=== PATIENT | female | born 1975 ===

== ENCOUNTER 2016-07-30 04:49 | Emergency (ER) | payer MEDICAID, OTHER ==
[2016-07-30 04:49] VITALS: BMI 29.2
[2016-07-30 05:18] VITALS: TEMP 98
[2016-07-30] MEDS ORDERED: Sodium Chloride 0.9% 1,000 ML IV ONE (05:27)
--- NOTE | 2016-07-30 05:27 | C.PDOC ---
History Of Present Illness Patient ate some take out fried chicken and developed abdominal pain, nausea and vomiting a few hours afterwards. Not tolerating po. No f/c. Time Seen by Provider: 07/30/16 05:27 Chief Complaint (Nursing): Abdominal Pain History Per: Patient History/Exam Limitations: no limitations Onset/Duration Of Symptoms: Hrs Current Symptoms Are (Timing): Still Present Context: Food Severity: Moderate Pain Scale Rating Of: 5 Location Of Pain/Discomfort: Diffuse Radiation Of Pain To:: None Quality Of Discomfort: Dull, Cramping, Stabbing Associated Symptoms: Nausea, Vomiting, Loss Of Appetite. denies: Fever, Chills Exacerbating Factors: None Alleviating Factors: None Last Bowel Movement: Yesterday Recent travel outside of the [place]: No Additional History Per: Patient Abnormal Vaginal Bleeding: No Past Medical History Reviewed: Historical Data, Nursing Documentation, Vital Signs Vital Signs: Last Vital Signs Temp 98 F 07/30/16 05:15 Pulse 90 07/30/16 05:45 Resp 16 07/30/16 05:45 BP 119/69 07/30/16 05:45 Pulse Ox 98 07/30/16 05:45 - Medical History PMH: Anemia - [facility] Procedures ESOPHAGOGASTRODUODENOSCOPY [EGD] W/CLOSED BIOPSY (06/02/13) Family History: States: No Known Family Hx - Social History Hx Tobacco Use: No Hx Alcohol Use: No Hx Substance Use: No - Immunization History Hx Tetanus Toxoid Vaccination: Yes Hx Influenza Vaccination: Yes Hx Pneumococcal Vaccination: No Review Of Systems Constitutional: Negative for: Fever, Chills ENT: Negative for: Throat Pain Cardiovascular: Negative for: Chest Pain, Palpitations Respiratory: Negative for: Shortness of Breath Gastrointestinal: Positive for: Nausea, Vomiting, Abdominal Pain Genitourinary: Negative for: Dysuria Musculoskeletal: Negative for: Back Pain Skin: Negative for: Rash, Lesions, Jaundice Neurological: Negative for: Weakness Psych: Negative for: Anxiety Physical Exam - Physical Exam Appears: Non-toxic, No Acute Distress Skin: Warm, Dry Oral Mucosa: Moist Neck: Supple Chest: Symmetrical Cardiovascular: Rhythm Regular Respiratory: No Rales, No Rhonchi, No Wheezing Gastrointestinal/Abdominal: Soft, Tenderness (diffuse), No Guarding, No Rebound Back: Normal Inspection Extremity: Normal ROM Extremity: Bilateral: Atraumatic, Normal Color And Temperature Neurological/Psych: Oriented x3, Normal Speech, Normal Cognition Gait: Steady ED Course And Treatment - Laboratory Results Result Diagrams: 07/30/16 05:48 07/30/16 05:48 O2 Sat by Pulse Oximetry: 97 Pulse Ox Interpretation: Normal Progress Note: blood work, ivf, zofran, pepcid, morphine Disposition Counseled Patient/Family Regarding: Studies Performed, Diagnosis - Disposition Disposition Time: 05:27 Condition: FAIR - Clinical Impression Clinical Impression: Abdominal pain, Nausea, Vomiting Physician Patient Turnover Patient Signed Over To: Mary Nevarez Handoff Comments: pending ct scan and re-eval
[2016-07-30] MEDS ORDERED: Sodium Chloride 0.9% 1,000 ML ONE (05:43)
[2016-07-30 05:57] LABS: BASO # 0.1 K/uL (0.0-0.2); BASO % 0.3 % (0.0-2.0); EOS # 0.6 K/uL (0.0-0.7); EOS % 3.1 % (0.0-4.0); HEMATOCRIT 41.4 % (34.0-47.0); LYMPH # 1.5 K/uL (1.0-4.3); LYMPH % 7.9 % (20.0-40.0); MEAN CELL VOLUME 88.5 fL (81.0-99.0); MEAN CORPUSCULAR HEMOGLOBIN 28.9 pg (27.0-31.0); MEAN CORPUSCULAR HGB CONC 32.7 g/dL (33.0-37.0); MEAN PLATELET VOLUME 8.1 fL (7.2-11.7); MONO # 1.2 K/uL (0.0-0.8); MONO % 6.4 % (0.0-10.0); PLATELET COUNT 385 K/uL (130-400); RED CELL DISTRIBUTION WIDTH 13.5 % (11.5-14.5); WHITE BLOOD COUNT 19.2 K/uL (4.8-10.8)
[2016-07-30 06:00] LABS: RBC URINE 15 /hpf (0-3); URINE BACTERIA OCC (<OCC); URINE BILIRUBIN NEGATIVE (NEGATIVE); URINE BLOOD NEGATIVE (NEGATIVE); URINE COLOR Yellow (YELLOW); URINE GLUCOSE (UA) NORMAL (Normal); URINE KETONE TRACE mg/dL (NEGATIVE); URINE LEUKOCYTE ESTERASE 3+ Leu/uL (Negative); URINE PROTEIN 1+ mg/dL (NEGATIVE); URINE UROBILINOGEN NORMAL mg/dL (0.2-1.0); WBC URINE 30 /hpf (0-5)
[2016-07-30 06:07] LABS: INR 0.9
[2016-07-30 06:12] LABS: CHLORIDE 101 mmol/L (98-107)
[2016-07-30 06:13] LABS: POTASSIUM 3.7 mmol/L (3.6-5.2); SODIUM 139 mmol/L (132-148)
[2016-07-30 06:15] LABS: BILIRUBIN,TOTAL 0.6 mg/dL (0.2-1.3); CARBON DIOXIDE 25 mmol/L (22-30); GFR AFRICAN-AMERICAN > 60
[2016-07-30 06:16] LABS: ALB/GLOB RATIO 1.2 (1.0-2.1); ALKALINE PHOSPHATASE 74 U/L (38-126); ALT/SGPT 25 U/L (9-52); AST/SGOT 24 U/L (14-36); BLOOD UREA NITROGEN 12 mg/dL (7-17); CALCIUM 8.8 mg/dl (8.6-10.4); GLUCOSE,RANDOM 123 mg/dL (65-105); TOTAL PROTEIN 8.4 g/dL (6.3-8.3)
[2016-07-30 07:13] VITALS: RESP 20
[2016-07-30] MEDS ORDERED: Iodixanol 320 MG/ML 100 ML BOTTLE IV ONE (07:19)
[2016-07-30 07:24] LABS: EOSINOPHIL 2 % (0-4); NEUTROPHIL 85 % (50-75); TOTAL CELLS COUNTED 100
--- NOTE | 2016-07-30 08:48 | CT ---
PROCEDURE: CT Abdomen and Pelvis with contrast HISTORY: Abdominal pain, nausea and vomiting COMPARISON: None. TECHNIQUE: Helical CT scan of the abdomen and pelvis was performed after administration of intravenous contrast. Oral contrast was not administered. Coronal and sagittal reformatted images were obtained. Contrast dose: 100 mL Visipaque Radiation dose: Total exam DLP = 406.75 mGy-cm. This CT exam was performed using one or more of the following dose reduction techniques: Automated exposure control, adjustment of the mA and/or kV according to patient size, and/or use of iterative reconstruction technique. FINDINGS: LOWER THORAX: The lung bases are clear. LIVER: The liver is normal in size and there is homogeneous enhancement. 5 mm low-attenuation lesion in the right hepatic lobe is too small to characterize by CT criteria. . No ductal dilatation. GALLBLADDER AND BILE DUCTS: Surgically absent. PANCREAS: The pancreas is normal in size and there homogeneous enhancement without focal mass. SPLEEN: The spleen is normal in size and there is homogeneous enhancement without focal mass. ADRENALS: Both adrenal glands are normal in size without discrete nodule. KIDNEYS AND URETERS: Both kidneys are normal in size and there is homogeneous enhancement without hydronephrosis or focal mass. VASCULATURE: Normal in appearance. No evidence of aortic aneurysm. BOWEL: The stomach is distended and there is mild distention of the 2nd portion of duodenum with inspissated material. Status post laparoscopic band surgery. There are fluid filled normal caliber small bowel loops. There are multiple air-fluid levels in the colon and rectum. No evidence of bowel dilatation or obstruction. APPENDIX: Not distinctly visualized. PERITONEUM: Unremarkable. No free fluid. No free air. LYMPH NODES: No enlarged lymph nodes. BLADDER: Partially decompressed. REPRODUCTIVE: The uterus is normal in size. Within normal limits BONES: No acute fracture. For the patient's age. OTHER FINDINGS: None. IMPRESSION: 1. Findings are most compatible with nonspecific enteritis and colitis. No evidence of bowel obstruction. 2. The appendix is not distinctly visualized. No evidence of inflammatory changes in the right lower quadrant.
[2016-07-30] MEDS ORDERED: Atropine-Diphenoxylate 0.025-2.5 mg Tab PO STA (09:12)
[2016-07-30] MEDS ORDERED: Atropine-Diphenoxylate 0.025-2.5 mg Tab ONE (09:29)
[2016-07-30 09:35] VITALS: BP 107/77; PULSE 79; O2SAT 99
== END 2016-07-30 09:50 | disposition home or self-care (01) ==
LOC: C.ER 04:49
DX: R10.84 Generalized abdominal pain (principal); R11.2 Nausea with vomiting, unspecified
CPT/HCPCS: 74177; 80053; 81001; 83690; 84703; 85025; 85610; 85730; 96361; 96365; 96375; 99285; J0696; J2270; J2405; J7040; Q9967

== ENCOUNTER 2017-11-10 20:48 | Emergency (ER) | payer MEDICAID, OTHER ==
[2017-11-10 20:48] VITALS: BMI 29.2
[2017-11-10 21:37] VITALS: BP 100/68; PULSE 75; TEMP 98.5; O2SAT 99
--- NOTE | 2017-11-10 22:36 | C.PDOC ---
History Of Present Illness 42yo female, comes to ER with complaints of left lower back pain radiating to her left lower leg started after exercising 2 weeks ago but now worse . She denies any known blunt trauma or injury to the area and denies any weakness or numbness to her lower extremity. Patient denies any heavy lifting, bowel or bladder dysfunction, saddle anesthesia, and offers no additional medical complaints. Time Seen by Provider: 11/10/17 21:41 Chief Complaint (Nursing): Back Pain History Per: Patient History/Exam Limitations: no limitations Current Symptoms Are (Timing): Still Present Associated Symptoms: denies: Incontinence, New Weakness, New Numbness Additional History Per: Patient Past Medical History Reviewed: Historical Data, Nursing Documentation, Vital Signs Vital Signs: Last Vital Signs Temp 98.5 F 11/10/17 21:31 Pulse 75 11/10/17 21:31 Resp 20 11/10/17 22:39 BP 100/68 11/10/17 21:31 Pulse Ox 99 11/11/17 01:38 - Medical History PMH: Anemia, Back Problems Surgical History: Cholecystectomy (2007) - [facility] Procedures ESOPHAGOGASTRODUODENOSCOPY [EGD] W/CLOSED BIOPSY (06/02/13) Family History: States: No Known Family Hx - Social History Hx Tobacco Use: No Hx Alcohol Use: No Hx Substance Use: No - Immunization History Hx Tetanus Toxoid Vaccination: No Hx Influenza Vaccination: Yes Hx Pneumococcal Vaccination: No Review Of Systems Genitourinary: Negative for: Incontinence Musculoskeletal: Positive for: Back Pain (left lower back radiating to left leg) Neurological: Negative for: Weakness, Numbness Physical Exam - Physical Exam Appears: Non-toxic Skin: Normal Color Head: Normacephalic Eye(s): bilateral: Normal Inspection Neck: Supple Chest: Symmetrical Cardiovascular: Rhythm Regular Respiratory: Normal Breath Sounds Back: No CVA Tenderness, No Vertebral Tenderness, Paraspinal Tenderness (left paralumbar), Straight Leg Raising (+ at 40 degrees, left leg) Extremity: Normal ROM Neurological/Psych: Oriented x3, Normal Motor, Normal Sensation Gait: Steady ED Course And Treatment O2 Sat by Pulse Oximetry: 99 (RA) Pulse Ox Interpretation: Normal Progress Note: Patient given Valium 5mg PO and Toradol 30mg IM. On reevaluation , patient reports improvement in symptoms. Instructed to take medications as prescribed and to follow up with PMD in 2-3 days. Disposition Counseled Patient/Family Regarding: Diagnosis, Need For Followup, Rx Given - Disposition Referrals: Chandler Rivas MD, PhD [Staff Provider] - Disposition: HOME/ ROUTINE Disposition Time: 22:34 Condition: STABLE Additional Instructions: Take medications as directed Follow up with PMD Return to ER if worse Prescriptions: Cyclobenzaprine [Cyclobenzaprine HCl] 10 mg PO BID #10 tab Naproxen [Naprosyn] 1 tab PO BID PRN #20 tab PRN Reason: Pain Instructions: Lumbar Muscle Strain (DC) Forms: [employer] ([place]ux[place]ish), Work Excuse - Clinical Impression Clinical Impression: Low back strain - PA / RN GASTROENTEROLOGY / Resident Statement MD/DO has reviewed & agrees with the documentation as recorded. - Scribe Statement The provider has reviewed the documentation as recorded by the Victoria Aquino Provider Attestation: All medical record entries made by the Victoria were at my direction and personally dictated by me. I have reviewed the chart and agree that the record accurately reflects my personal performance of the history, physical exam, medical decision making, and the department course for this patient. I have also personally directed, reviewed, and agree with the discharge instructions and disposition.
[2017-11-10 22:40] VITALS: RESP 20
== END 2017-11-10 22:39 | disposition home or self-care (01) ==
LOC: C.ER 20:48
DX: S39.012A Strain of muscle, fascia and tendon of lower back, initial encounter (principal); X58.XXXA Exposure to other specified factors, initial encounter
CPT/HCPCS: 96372; 99283; J1885

== ENCOUNTER 2018-04-09 06:36 | Day surgery (SDC) | payer OTHER ==
[2018-04-09 06:58] VITALS: O2SAT 100
[2018-04-09] MEDS ORDERED: Midazolam 2 MG/2 ML VIAL ONE (07:39)
[2018-04-09] MEDS ORDERED: Propofol 10 mg/ml Inj (20 ML) ONE (07:39)
--- NOTE | 2018-04-09 07:41 | CP.SDSHP ---
Same Day Surgery H & P - History Proposed Procedure: egd. colonoscopy Pre-Op Diagnosis: persistent heartburn S/P Lap band. Change in bowel habits - Previous Medical/Surgical History Endocrine/Metabolic: Diabetes, Obesity Previous Surgical History: Lap band 2005. Lap Ileana 2007 - Allergies Allergies: Allergies No Known Allergies Allergy (Verified 11/10/17 21:37) - Physical Exam Vital Signs: Vital Signs 04/09/18 06:51 Temperature 97.2 F L Pulse Rate 81 Respiratory 18 Rate Blood Pressure 113/81 O2 Sat by Pulse 100 Oximetry Mental Status: Alert & Oriented x3 Neuro: WNL Heart: WNL Lungs: WNL GI: WNL - Impression Impression: heartburn. change in bowels. s/p lap band Pt. Evaluated Today:Candidate for Anesthesia & Procedure: Yes - Date & Time Date: 04/09/18 Time: 07:41 Short Stay Discharge - Short Stay Discharge Admitting Diagnosis/Reason for Visit: HEARTBURN, CHANGE IN BOWEL HABIT, FAMILY HISTORY Disposition: HOME/ ROUTINE
[2018-04-09] MEDS ORDERED: Pantoprazole 40 mg EC Tab PO STA (07:53)
[2018-04-09 08:21] VITALS: TEMP 97.8
[2018-04-09 10:09] VITALS: BP 141/67; PULSE 77; RESP 15
== END 2018-04-09 10:05 | disposition home or self-care (01) ==
LOC: C.ENDO 06:36
PROVIDERS: ATTEND Internal Medicine Gastroenterology
DX: R12 Heartburn (principal); R19.4 Change in bowel habit; Z80.0 Family history of malignant neoplasm of digestive organs; B96.81 Helicobacter pylori [H. pylori] as the cause of diseases classified elsewhere; E11.9 Type 2 diabetes mellitus without complications; E66.9 Obesity, unspecified; K22.10 Ulcer of esophagus without bleeding; K29.50 Unspecified chronic gastritis without bleeding; Z98.84 Bariatric surgery status; K64.1 Second degree hemorrhoids; K21.0 Gastro-esophageal reflux disease with esophagitis
CPT/HCPCS: 43239; 45378; 84703; 88305; J2250; J2704

== ENCOUNTER 2018-05-16 10:58 | Outpatient (CLI) | payer OTHER | END 2018-05-16 10:59 | disposition home or self-care (01) | LOC: C.MRIC 10:59 | DX: N64.4 Mastodynia (principal); R92.8 Other abnormal and inconclusive findings on diagnostic imaging of breast ==